=== PATIENT | male | born 1955 | race Caucasian/White ===

== ENCOUNTER 2023-02-09 10:49 | Outpatient (CLI) | payer MEDICARE, BC | END 2023-02-09 10:50 | disposition home or self-care (01) | LOC: BICULT 10:49 | PROVIDERS: ATTEND Urology | DX: N13.2 Hydronephrosis with renal and ureteral calculous obstruction (principal); N18.32 Chronic kidney disease, stage 3b | CPT/HCPCS: 74018; 76770 ==

== ENCOUNTER 2023-06-30 00:13 | Emergency (ER) | payer MEDICARE, BC ==
[2023-06-30 01:45] LABS: Bacteria/HPF 3+ HPF (None Seen); Bilirubin Negative (Negative); Blood, Urine 1+ (Negative); CAUTI Indications for Culture Pelvic or flank pain; Calcium Oxalate Crystals Rare HPF (None Seen); Clarity Extra Turbid (Clear); Glucose, Urine (Dipstick) Normal (Negative); Ketone, Urine Negative (Negative); Leukocyte 500 Leu/uL (Negative); Nitrite 2+ (Negative); Protein, Urine (Dipstick) 100 mg/dL (Neg-Trace); RBC/HPF 21-50 HPF (0-3); Specific Gravity, Urine 1.014 (1.002-1.036); Squamous Epithelial None Seen HPF (0-3); Triple Phosphate Crystal 4+ HPF (None Seen); Urobilinogen Normal mg/dL (Less than 2); WBC/HPF Greater than 50 HPF (0-3)
[2023-06-30 01:46] LABS: Urine Culture Reflex Yes Yes
== END 2023-06-30 02:00 | disposition home or self-care (01) ==
LOC: ERS 00:13
DX: T83.018A Breakdown (mechanical) of other urinary catheter, initial encounter (principal); R10.2 Pelvic and perineal pain
CPT/HCPCS: 51702; 81001; 87077; 87086; 87186; 99283

== ENCOUNTER 2023-07-21 07:24 | Emergency (ER) | payer MEDICARE, BC ==
[2023-07-21 08:57] LABS: Bacteria/HPF 4+ HPF (None Seen); Bilirubin Negative (Negative); Blood, Urine 2+ (Negative); CAUTI Indications for Culture Dysuria,urgency,freq; Clarity Clear (Clear); Glucose, Urine (Dipstick) Normal (Negative); Ketone, Urine Negative (Negative); Leukocyte 500 Leu/uL (Negative); Nitrite Negative (Negative); Protein, Urine (Dipstick) Negative (Neg-Trace); RBC/HPF Greater than 50 HPF (0-3); Squamous Epithelial None Seen HPF (0-3); Urobilinogen Normal mg/dL (Less than 2); WBC/HPF Greater than 50 HPF (0-3); pH, Urine 6.5 (5.0-9.0)
[2023-07-21 09:01] LABS: Urine Culture Reflex Yes Yes
== END 2023-07-21 08:59 | disposition home or self-care (01) ==
LOC: ERS 07:24
DX: T83.098A Other mechanical complication of other urinary catheter, initial encounter (principal); R33.9 Retention of urine, unspecified; I10 Essential (primary) hypertension
CPT/HCPCS: 51702; 81001; 87077; 87086; 87186; 99283

== ENCOUNTER 2023-07-25 10:50 | Outpatient (CLI) | payer MEDICARE, BC ==
[2023-07-25 11:57] LABS: #Basophils 0.06 10x3/uL (0.0-0.2); #Monocytes 0.69 10x3/uL (0.0-1.1); #Neutrophils 4.42 10x3/uL (1.5-8.4); %Basophils 0.7 % (0.0-2.0); %Eosinophils 2.3 % (0.0-6.0); %Lymphocytes 36.9 % (18.0-47.0); %Monocytes 8.1 % (0.0-10.0); %Neutrophils 51.8 % (40.0-75.0); Hematocrit 44.6 % (38.8-50.0); Hemoglobin 14.8 g/dL (13.5-17.5); Mean Corpuscular HGB CONC 33.2 g/dL (32.0-36.0); Mean Corpuscular Hemoglobin 28.2 pg (27.0-33.0); Mean Platelet Volume 11.3 fL (7.4-10.4); Platelet Count 264 10x3/uL (150-450); RBC Distribution Width 14.5 % (11.5-14.5); Red Blood Cell (RBC) Count 5.25 10x6/uL (4.32-5.72); White Blood Cell (WBC) Count 8.5 10x3/uL (3.5-10.5)
[2023-07-25 12:25] LABS: ALT (SGPT) 15 U/L (8-55); AST (SGOT) 19 U/L (5-34); Albumin 4.2 g/dL (3.4-4.8); Alkaline Phosphatase 67 U/L (40-110); Anion Gap 14 mmol/L (10-20); BUN (Urea Nitrogen) 24 mg/dL (8.4-25.7); Bilirubin, Total 0.4 mg/dL (0.2-1.2); Calc. Creatinine Clearance 0 mL/min (70-130); Calcium 9.6 mg/dL (7.8-10.44); Carbon Dioxide 25 mmol/L (23-31); Chloride 102 mmol/L (98-107); Estimated GFR 57; Glucose 102 mg/dL (80-115); Potassium 4.4 mmol/L (3.5-5.1); Protein, Total 7.2 g/dL (5.8-8.1); Sodium 137 mmol/L (136-145)
== END 2023-07-25 10:51 | disposition home or self-care (01) ==
LOC: LABBT 10:50
PROVIDERS: ATTEND Surgery
DX: Z01.818 Encounter for other preprocedural examination (principal); K40.90 Unilateral inguinal hernia, without obstruction or gangrene, not specified as recurrent
CPT/HCPCS: 80053; 85025; 93005; 93010

== ENCOUNTER 2023-08-03 06:54 | Day surgery (SDC) | payer MEDICARE, BC ==
[2023-07-25 11:12] VITALS: BMI 27.1
[2023-08-03] MEDS ORDERED: Sodium Chloride 0.9% 100 ML ONE (08:06)
[2023-08-03] MEDS ORDERED: CEFAZOLIN 2 GM VIAL ONE (08:06)
[2023-08-03] MEDS ORDERED: fentaNYL PF 100 MCG/2 ML SYRINGE ONE (08:07)
[2023-08-03] MEDS ORDERED: PROPOFOL 40 ML ONE (08:07)
[2023-08-03] MEDS ORDERED: Ondansetron PF 4 MG/2 ML Vial ONE (08:07)
[2023-08-03] MEDS ORDERED: Lidocaine 1% PF 5 ML VIAL ONE (08:07)
[2023-08-03] MEDS ORDERED: Dexamethasone 4 mg/ml Vial ONE (08:07)
[2023-08-03] MEDS ORDERED: Ketorolac Tromethamine 30 MG (1 mL) VIAL ONE (08:08)
[2023-08-03] MEDS ORDERED: Bupivacaine 0.25% HCL 30 ML VIAL ONE (08:09)
[2023-08-03] MEDS ORDERED: EPINEPHrine 1 MG/ML VIAL ONE (08:09)
[2023-08-03] MEDS ORDERED: PHENYLEPHRINE-NS 100 MCG/ML 10 ML SYRINGE ONE ×2 (09:12→10:47)
[2023-08-03] MEDS ORDERED: ePHEDrine Sulfate 50 MG/10 ML VIAL ONE ×2 (09:22→10:40)
[2023-08-03] MEDS ORDERED: Vasopressin 20 UNITS/ML VIAL ONE (09:36)
[2023-08-03] MEDS ORDERED: Dexmedetomidine 200 MCG/2 ML VIAL ONE (10:37)
[2023-08-03] MEDS ORDERED: Glycopyrrolate 0.2 MG/ML 5 ML SYRINGE ONE (10:38)
== END 2023-08-03 11:54 | disposition home or self-care (01) ==
LOC: SDC 06:54
PROVIDERS: ATTEND Surgery
PROC: 0YU60JZ Supplement Left Inguinal Region with Synthetic Substitute, Open Approach (ICD-10-PCS; principal; 2023-08-03)
DX: K40.30 Unilateral inguinal hernia, with obstruction, without gangrene, not specified as recurrent (principal); N40.0 Benign prostatic hyperplasia without lower urinary tract symptoms; Z87.891 Personal history of nicotine dependence; Z79.899 Other long term (current) drug therapy; Z87.442 Personal history of urinary calculi
CPT/HCPCS: 49507; A6258; C1781; J0171; J0665; J1100; J1885; J2405; J2704; J3490

== ENCOUNTER 2023-12-06 14:10 | Outpatient (CLI) | payer MEDICARE | END 2023-12-06 14:11 | disposition home or self-care (01) | LOC: BICULT 14:10 | PROVIDERS: ATTEND Urology | DX: N20.0 Calculus of kidney (principal); I82.402 Acute embolism and thrombosis of unspecified deep veins of left lower extremity; N28.1 Cyst of kidney, acquired | CPT/HCPCS: 76770; 93970 ==

== ENCOUNTER 2024-02-07 05:47 | Emergency (ER) | payer MEDICARE | END 2024-02-07 06:29 | disposition home or self-care (01) | LOC: ERS 05:47 | DX: T83.098A Other mechanical complication of other urinary catheter, initial encounter (principal); I10 Essential (primary) hypertension | CPT/HCPCS: 51702; 99283 ==

== ENCOUNTER 2025-02-02 09:20 | Outpatient (CLI) | payer MEDICARE | END 2025-02-02 09:21 | disposition home or self-care (01) | LOC: CT 09:20 | PROVIDERS: ATTEND Orthopaedic Surgery | DX: Z01.818 Encounter for other preprocedural examination (principal); M17.11 Unilateral primary osteoarthritis, right knee ==

== ENCOUNTER 2025-02-02 09:54 | Outpatient (CLI) | payer MEDICARE ==
[2025-02-02 10:49] LABS: #Basophils 0.04 10x3/uL (0.0-0.2); #Eosinophils 0.20 10x3/uL (0.0-0.7); #Monocytes 0.74 10x3/uL (0.11-0.59); #Neutrophils 4.26 10x3/uL (1.40-6.50); %Basophils 0.5 % (0.0-1.0); %Eosinophils 2.3 % (0.0-10.0); %Lymphocytes 38.3 % (21.0-51.0); %Monocytes 8.7 % (0.0-10.0); %Neutrophils 50.0 % (42.0-75.0); Hematocrit 47.7 % (42.0-52.0); Hemoglobin 14.8 g/dL (14.0-18.0); Mean Corpuscular Hemoglobin 27.1 pg (27.0-31.0); Mean Corpuscular Volume 87.4 fL (78.0-98.0); Platelet Count 230 10x3/uL (130-400); Red Blood Cell (RBC) Count 5.46 mill/uL (4.70-6.10); White Blood Cell (WBC) Count 8.53 10x3/uL (4.8-10.8)
[2025-02-02 11:03] LABS: INR-International Normal Ratio 1.2; Prothrombin Time 14.9 sec (12.0-14.7)
[2025-02-02 11:05] LABS: Anion Gap 14 mmol/L (10-20); BUN (Urea Nitrogen) 25 mg/dL (8.4-25.7); Calc. Creatinine Clearance 0 mL/min (70-130); Calcium 9.5 mg/dL (7.8-10.44); Carbon Dioxide 23 mmol/L (23-31); Chloride 106 mmol/L (98-107); Glucose 102 mg/dL (80-115); Potassium 4.4 mmol/L (3.5-5.1); Sodium 139 mmol/L (136-145)
[2025-02-02 11:23] LABS: Bacteria/HPF None Seen HPF (None Seen); Glucose, Urine (Dipstick) Normal (Negative); Leukocyte Negative Leu/uL (Negative); Protein, Urine (Dipstick) Negative (Neg-Trace); RBC/HPF 0-3 HPF (0-3); Specific Gravity, Urine 1.005 (1.002-1.036); WBC/HPF 0-3 HPF (0-3)
== END 2025-02-02 09:55 | disposition home or self-care (01) ==
LOC: LABBT 09:54
PROVIDERS: ATTEND Orthopaedic Surgery
DX: Z01.818 Encounter for other preprocedural examination (principal); M17.11 Unilateral primary osteoarthritis, right knee; R91.8 Other nonspecific abnormal finding of lung field
CPT/HCPCS: 71046; 80048; 81001; 85025; 85610; 87081; 93005; 93010